=== PATIENT | male | born 1970 | race Caucasian/White ===

== ENCOUNTER 2018-11-03 18:35 | Emergency (ER) | payer BC ==
[~2018-11-03] VITALS: Ht 185.4 cm; Wt 158.8 kg
--- NOTE | 2018-11-03 18:47 | ED Upper Extremity ---
General Stated Complaint: RT SHOULDER PAIN Source: patient Exam Limitations: no limitations History of Present Illness Date Seen by Provider: Nov 03, 2018 Time Seen by Provider: 18:43 Initial Comments 48-year-old male presents with right shoulder pain. Patient reports he had his arm cannot down to the sign little bit behind him when he went to push up and f elt a "pop in his right shoulder. Patient has pain with movement of his right shoulder especially at approximately 95 degrees of flexion with some pain approximately 90 of abduction. Patient has mild decreased strength. Pains little bit worse if he extends his arm backwards patient has no decreased range of motion, no obvious bulging bruising or other abnormalities. Allergies and Home Medications Allergies Coded Allergies: Penicillins (Verified Allergy, Unknown, 12/01/05) Patient Home Medication List Home Medication List Reviewed: Yes Review of Systems Constitutional: No chills, No fever Respiratory: No cough, No short of breath Cardiovascular: no symptoms reported; No chest pain Gastrointestinal: no symptoms reported Genitourinary: no symptoms reported Musculoskeletal: see HPI Skin: no symptoms reported Psychiatric/Neurological: No Symptoms Reported Past Jqdupdb-Sjdeaa-Nygglo Hx Past Med/Social Hx: Reviewed Nursing Past Med/Soc Hx Physical Exam Vital Signs Vital Signs - First Documented 11/03/18 18:39 Temp 97.4 Pulse 90 Resp 18 B/P (MAP) 99/61 (74) Pulse Ox 98 Capillary Refill : Height, Weight, BMI Height: '" Weight: lbs. oz. kg; BMI Method: General Appearance: WD/WN, no apparent distress HEENT: PERRL/EOMI Neck: non-tender, full range of motion Cardiovascular: regular rate, rhythm Respiratory: chest non-tender, lungs clear, normal breath sounds Gastrointestinal: soft Back: normal inspection, no CVA tenderness Shoulder: No asymmetry (Pain & 90 abduction, 95 flexion, negative empty can, negative exam for any other rotator cuff weakness), No bone tenderness, No deformity; limited ROM, pain Elbow/Forearm: normal inspection Wrist: Yes normal inspection Progress/Results/Core Measures Results/Orders My Orders Orders - REN REYNOSO DO Shoulder 2 View Right (11/03/18 18:47) Vital Signs/I&O 11/03/18 18:39 Temp 97.4 Pulse 90 Resp 18 B/P (MAP) 99/61 (74) Pulse Ox 98 Progress Progress Note : Progress Note Patient with negative right shoulder x-ray. Exam was consistent with a right shoulder strain but no acute weakness indicating significant right shoulder rotator cuff pathology. Discussed the patient is use ice for 24 hours, Tylenol ibuprofen as needed for pain. Warm moist heat after 24 hours and 4% lidocaine with menthol. Recommend he limit his lifting at least for a few days and then slowly reintroduce. Patient stable all be discharged home in stable condition Diagnostic Imaging Diagonstic Imaging: Xray Plain Films/CT/US/NM/MRI: other (Right shoulder) Reviewed: Reviewed/Discussed Departure Impression Primary Impression: Strain of other muscles, fascia and tendons at shoulder and upper arm level, right arm, initial encounter Disposition: 01 HOME, SELF-CARE Condition: Stable Departure-Patient Inst. Referrals: JOSE ALFREDO MEANS MD (PCP/Family) Primary Care Physician Patient Instructions: Muscle Strain, Tendonitis (DC) Add. Discharge Instructions: 4% lidocaine with menthol cream or gel to affected area as directed on package Tylenol and ibuprofen as needed for pain Ice 24 hours then warm moist heat Rest shoulder for 48 hours if possible and slowly reintroduce activity REN REYNOSO DO Nov 03, 2018 18:47
--- NOTE | 2018-11-03 19:02 | Diagnostic Imaging Report ---
EXAMINATION: Two views of the right shoulder. INDICATION: Shoulder pain. [place] a pop. COMPARISON: No comparison available. FINDINGS: These two views of the right shoulder demonstrate no evidence to suggest glenohumeral joint dislocation. There are osteoarthritic changes of the glenohumeral joint with small glenoid and humeral head osteophytes. There is also some mild spurring at the AC joint. AC joint alignment appears normal. There is no finding of an acute fracture. The visualized portion of the right is clear. IMPRESSION: 1. 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 There is no finding of dislocation, malalignment or acute fracture. Dictated by: Dictated on workstation # [id number]
[2018-11-03 19:18] VITALS: BP 99/61
== END 2018-11-03 19:19 | disposition home or self-care (01) ==
LOC: EDUNIT# 18:35 → ER FS 18:37
DX: S46.811A Strain of other muscles, fascia and tendons at shoulder and upper arm level, right arm, initial encounter (principal); Z88.0 Allergy status to penicillin; X50.1XXA Overexertion from prolonged static or awkward postures, initial encounter
CPT/HCPCS: 73030

== ENCOUNTER 2021-06-29 10:30 | Emergency (ER) | payer OTHER ==
[~2021-06-29] VITALS: Ht 185.5 cm; Wt 158.7 kg
[2021-06-29] MEDS ORDERED: ASPIRIN 81 MG CHEW (CHILDREN'S ASA) PO ONE (11:15)
[2021-06-29 11:17] LABS: BASOPHILS # (AUTO) 0.1 10^3/uL (0.0-0.1); BASOPHILS % (AUTO) 1 % (0-10); EOSINOPHILS # (AUTO) 0.1 10^3/uL (0.0-0.3); EOSINOPHILS % (AUTO) 1 % (0-10); HEMATOCRIT 46 % (40-54); HEMOGLOBIN 16.1 g/dL (13.3-17.7); LYMPHOCYTES # (AUTO) 2.2 10^3/uL (1.0-4.0); LYMPHOCYTES % (AUTO) 26 % (12-44); MEAN CORPUSCULAR HEMOGLOBIN 33 pg (25-34); MEAN CORPUSCULAR HGB CONC 35 g/dL (32-36); MEAN CORPUSCULAR VOLUME 94 fL (80-99); MEAN PLATELET VOLUME 9.5 fL (9.0-12.2); MONOCYTES # (AUTO) 0.7 10^3/uL (0.0-1.0); MONOCYTES % (AUTO) 8 % (0-12); NEUTROPHILS # (AUTO) 5.7 10^3/uL (1.8-7.8); NEUTROPHILS % (AUTO) 65 % (42-75); PLATELET COUNT 281 10^3/uL (130-400); WHITE BLOOD COUNT 8.7 10^3/uL (4.3-11.0)
--- NOTE | 2021-06-29 11:22 | ED Chest Pain ---
General Chief Complaint: Chest Pain Stated Complaint: TROP LEVELS Source: patient Exam Limitations: no limitations History of Present Illness Date Seen by Provider: June 29, 2021 Time Seen by Provider: 11:21 Initial Comments Patient is a 51-year-old male with a history of hypertension, diabetes, family cardiac history who presents ED with indigestion and left-sided chest discomfort. Symptoms started on Monday with discomfort to left-sided chest. He states he felt like he was going to pass out on Monday. Has been having some intermittent discomfort but states he has no severe pain at this time. Has been having indigestion in his chest. He reports of burping since his near syncopal episode on Monday. No cough, shortness of breath, abdominal pain, vomiting, headache, dizziness. History of cardiac catheterization in 2016. Strong family cardiac history. Patient went to urgent care was recommended come to the ED for further cardiac work-up. Patient denies any leg swelling, fever, abdominal pain. Did take a baby aspirin this morning. Allergies and Home Medications Allergies Coded Allergies: Penicillins (Verified Allergy, Unknown, 12/01/05) Patient Home Medication List Home Medication List Reviewed: Yes Pantoprazole Sodium (Protonix) 40 Mg Tablet.dr 40 MG PO DAILY Prescribed by: BO HARTLEY on 06/29/21 6834 Review of Systems Review of Systems Constitutional: No chills, No diaphoresis, No malaise EENTM: No Blurred Vision, No Double Vision, No Mouth Pain, No Mouth Swelling Respiratory: Denies Cough, Denies Orthopnea, Denies Shortness of Air, Denies SOA With Exertion Cardiovascular: Chest Pain; Denies Edema, Denies Irregular Heart Rate, Denies Lightheadedness Gastrointestinal: Denies Abdominal Pain, Denies Diarrhea, Denies Nausea, Denies Vomiting Genitourinary: Denies Burning, Denies Discharge, Denies Drainage, Denies Frequency Musculoskeletal: No back pain, No joint pain Skin: No change in color, No change in hair/nails Psychiatric/Neurological: Denies Headache, Denies Numbness All Other Systems Reviewed Negative Unless Noted: Yes Past Qugptpr-Ewbyuc-Ilryup Hx Seasonal Allergies Seasonal Allergies: No Past Medical History Surgeries: No Respiratory: No Cardiac: Yes Hypertension Neurological: No Genitourinary: No Gastrointestinal: No Musculoskeletal: No Endocrine: Yes Diabetes, Non-Insulin dep HEENT: No Cancer: No Psychosocial: No Integumentary: No Physical Exam Vital Signs Vital Signs - First Documented 06/29/21 10:50 Temp 36.4 Pulse 75 Resp 12 B/P (MAP) 146/95 (112) Pulse Ox 97 O2 Delivery Room Air Capillary Refill : Height, Weight, BMI Height: 6'1.00" Weight: 350lbs. oz. 158.909955hi; BMI Method:Stated General Appearance: No Apparent Distress, WD/WN HEENT: PERRL/EOMI, TMs Normal, Normal ENT Inspection, Pharynx Normal Neck: Full Range of Motion, Normal Inspection, Non Tender, Supple Respiratory: Chest Non Tender, Lungs Clear, No Respiratory Distress Cardiovascular: Regular Rate, Rhythm, No Edema, No Gallop, No JVD, No Murmur Gastrointestinal: Normal Bowel Sounds, No Organomegaly, No Pulsatile Mass, Non Tender, Soft Extremity: Normal Capillary Refill, Normal Inspection, Normal Range of Motion, Non Tender Neurologic/Psychiatric: Alert, Oriented x3, No Motor/Sensory Deficits, Normal Mood/Affect, 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 Skin: Normal Color, Warm/Dry Progress/Results/Core Measures Results/Orders Lab Results Laboratory Tests Test 06/29/21 11:05 06/29/21 13:00 Range/Units White Blood Count 8.7 4.3-11.0 10^3/uL Red Blood Count 4.84 4.30-5.52 10^6/uL Hemoglobin 16.1 13.3-17.7 g/dL Hematocrit 46 40-54 % Mean Corpuscular Volume 94 80-99 fL Mean Corpuscular Hemoglobin 33 25-34 pg Mean Corpuscular Hemoglobin Concent 35 32-36 g/dL Red Cell Distribution Width 12.4 10.0-14.5 % Platelet Count 281 130-400 10^3/uL Mean Platelet Volume 9.5 9.0-12.2 fL Immature Granulocyte % (Auto) 1 % Neutrophils (%) (Auto) 65 42-75 % Lymphocytes (%) (Auto) 26 12-44 % Monocytes (%) (Auto) 8 0-12 % Eosinophils (%) (Auto) 1 0-10 % Basophils (%) (Auto) 1 0-10 % Neutrophils # (Auto) 5.7 1.8-7.8 10^3/uL Lymphocytes # (Auto) 2.2 1.0-4.0 10^3/uL Monocytes # (Auto) 0.7 0.0-1.0 10^3/uL Eosinophils # (Auto) 0.1 0.0-0.3 10^3/uL Basophils # (Auto) 0.1 0.0-0.1 10^3/uL Immature Granulocyte # (Auto) 0.1 0.0-0.1 10^3/uL Prothrombin Time 12.6 12.2-14.7 SEC INR Comment 0.9 0.8-1.4 Activated Partial Thromboplast Time 26 24-35 SEC Sodium Level 140 135-145 MMOL/L Potassium Level 3.7 3.6-5.0 MMOL/L Chloride Level 96 L 98-107 MMOL/L Carbon Dioxide Level 31 21-32 MMOL/L Anion Gap 13 5-14 MMOL/L Blood Urea Nitrogen 8 7-18 MG/DL Creatinine 0.84 0.60-1.30 MG/DL Estimat Glomerular Filtration Rate 104 BUN/Creatinine Ratio 10 Glucose Level 154 H 70-105 MG/DL Calcium Level 9.6 8.5-10.1 MG/DL Corrected Calcium 9.5 8.5-10.1 MG/DL Magnesium Level 1.3 L 1.6-2.4 MG/DL Total Bilirubin 0.5 0.1-1.0 MG/DL Aspartate Amino Transf (AST/SGOT) 39 H 5-34 U/L Alanine Aminotransferase (ALT/SGPT) 47 0-55 U/L Alkaline Phosphatase 45 40-136 U/L Myoglobin 87.4 10.0-92.0 NG/ML Troponin I < 0.028 < 0.028 <0.028 NG/ML B-Type Natriuretic Peptide < 10.0 <100.0 PG/ML Total Protein 7.3 6.4-8.2 GM/DL Albumin 4.1 3.2-4.5 GM/DL Lipase 77 8-78 U/L My Orders Orders - CANDI KUMAR PA Cbc With Automated Diff (06/29/21 11:11) Magnesium (06/29/21 11:11) Chest 1 View, Ap/Pa Only (06/29/21 11:11) Ekg Tracing (06/29/21 11:11) Comprehensive Metabolic Panel (06/29/21 11:11) Myoglobin Serum (06/29/21 11:11) Protime With Inr (06/29/21 11:11) Partial Thromboplastin Time (06/29/21 11:11) Monitor-Rhythm Ecg Trace Only (06/29/21 11:11) Ed Iv/Invasive Line Start (06/29/21 11:11) Lipase (06/29/21 11:11) Bnp Black (06/29/21 11:11) Troponin I [place] (06/29/21 11:11) Aspirin Chewable Tablet (Baby Aspirin Ch (06/29/21 11:15) Troponin I [place] (06/29/21 13:00) Medications Given in ED Current Medications Medications Dose Ordered Sig/Ethan Route Start Time Stop Time Status Last Admin Dose Admin Aspirin 324 mg ONCE ONCE PO 06/29/21 11:15 06/29/21 11:16 DC 06/29/21 11:22 324 MG Vital Signs/I&O 06/29/21 06/29/21 10:50 13:43 Temp 36.4 36.4 Pulse 75 75 Resp 12 12 B/P (MAP) 146/95 (112) 148/93 Pulse Ox 97 97 O2 Delivery Room Air Room Air Comment Sinus rhythm, Q waves noted in the inferior leads. No ST elevation or depression. 73 bpm, QRS duration 123 MS, QTc 431 MS. Departure Communication (PCP) Patient presents ED with indigestion, burping, and chest discomfort. Symptoms started Monday. He states he started having burping after feeling like he was going to pass out. Has been burping consistently since Monday. Denies waking up with pain in the middle of the night. Seems to be worse when he moves around. Does have some left-sided chest discomfort but states he does lift heavy objects and concern for more muscle strain. No specific tenderness on palpation. No shortness of breath, wheezing, cough. Does have cardiac risk factors. Strong family cardiac history. With elevated heart score. His initial EKG was concerning for Q-wave in the inferior and lateral leads with concern for acute RI. No ST elevation or depression. Patient was given aspirin 324mg. Discussed patient with Dr. Robledo regarding EKG who felt like this was more nonspecific. Did have a cardiac cath in 2015 without severe stenosis. Has been treating symptoms conservatively. Patient vital signs stable. No chest pain at this time. Initial troponin negative. BNP negative. Chest x-ray negative for pneumonia, pneumnothorax. Lab work otherwise unremarkable. He is not tachycardic, hypoxic, recent travels suggesting PE. He denies of any current chest pain or shortness of breath. States symptoms are more burping. Patient has no abdominal tenderness. Second 2-hour troponin was negative as patient refused waiting three hours which i recommended. Initially after lab work and EKG was again discussed with Dr. Robledo. Concern for potential cardiac etiology with his cardiac risk factors and strong family history. I Recommend admission for cardiac evaluation. Patient refused. He states he would rather follow-up with Dr. Robledo outpatient. Discussed the risk such as a cardiac event, potential . Patient acknowledges. Discussed antiacid if this is anything related to GERD, esophagitis etc would maybe associated with the burping. Did prescribe Protonix. If any worsening symptoms strongly recommend returning back to ED. Did provide Dr. Robledo contact and who is aware of patient Impression Primary Impression: Chest pain Additional Impression: Indigestion Disposition: 01 HOME, SELF-CARE Condition: Stable Departure-Patient Inst. Decision time for Depature: 13:33 Referrals: JOSE ALFREDO MEANS MD (PCP/Family) Primary Care Physician JOSE ROBLEDO MD Patient Instructions: Chest Pain (DC) Scripts Pantoprazole Sodium (Protonix) 40 Mg Tablet. 40 MG PO DAILY, #20 TAB Prov: CANDI KUMAR 06/29/21 CANDI KUMAR June 29, 2021 11:22
[2021-06-29 11:29] LABS: INR 0.9 (0.8-1.4); PROTHROMBIN TIME PATIENT 12.6 SEC (12.2-14.7)
[2021-06-29 11:38] LABS: ALBUMIN 4.1 GM/DL (3.2-4.5); BILIRUBIN,TOTAL 0.5 MG/DL (0.1-1.0); CALCIUM 9.6 MG/DL (8.5-10.1); CREATININE SERUM 0.84 MG/DL (0.60-1.30); MAGNESIUM 1.3 MG/DL (1.6-2.4); POTASSIUM 3.7 MMOL/L (3.6-5.0); TOTAL PROTEIN 7.3 GM/DL (6.4-8.2)
--- NOTE | 2021-06-29 11:50 | Diagnostic Imaging Report ---
Indication: Chest pain COMPARISON: None available TECHNIQUE: 2 frontal radiograph of the chest dated 06/29/2021 FINDINGS: The cardiac silhouette is enlarged. Mild central pulmonary vascular congestion. The lungs are clear of focal pulmonary opacity. No significant pleural effusion. No pneumothorax. No acute osseous abnormality. IMPRESSION: Cardiomegaly with mild central pulmonary vascular congestion without significant interstitial edema or pleural effusion. Dictated by: Dictated on workstation # [id number]
[2021-06-29] MEDS ORDERED: PANT40TA2 PO (13:34)
[2021-06-29 13:43] VITALS: BP 148/93
== END 2021-06-29 13:43 | disposition home or self-care (01) ==
LOC: EDUNIT# 10:30 → ER 10:32
DX: R07.89 Other chest pain (principal); K30 Functional dyspepsia; Z82.49 Family history of ischemic heart disease and other diseases of the circulatory system
CPT/HCPCS: 36415; 71045; 80053; 83690; 83735; 83874; 83880; 84484; 85025; 85610; 85730; 93005; 93041